=== PATIENT | male | born 1955 | race Caucasian/White ===

== ENCOUNTER 2019-04-25 06:04 | Day surgery (SDC) | payer MEDICARE, OTHER ==
[2019-04-25] MEDS: TROPICAMIDE 1% 15 ML OPH OPER (07:06)
[2019-04-25] MEDS: DICLOFENAC 0.1% 2.5 ML OPH OPER (07:06)
[2019-04-25] MEDS: CYCLOPENTOLATE/PHENYLEPH 2 ML OPH OPER (07:06)
[2019-04-25] MEDS: MOXIFLOXACIN 0.5% 3 ML OPH OPER (07:06)
[2019-04-25] MEDS: SOD CHLORIDE 0.9% 1,000 ML IV (07:07)
[2019-04-25] MEDS ORDERED: FENTAnyl 50 MCG/ML VIAL IV (08:30)
[2019-04-25] MEDS ORDERED: PROPOFOL 200 MG INJ (09:00)
[2019-04-25] MEDS ORDERED: LIDOCAINE 2% (SDV) 5 ML INJ (09:00)
[2019-04-25] MEDS ORDERED: NA HYALURONATE/CHONDROITIN 0.5 ML SYG (09:17)
[2019-04-25] MEDS ORDERED: CARBACHOL 0.01% 1.5 ML OPH INJ (09:17)
[2019-04-25] MEDS ORDERED: DEXAMETHASONE 4 MG/ML 1 ML INJ (09:17)
[2019-04-25] MEDS ORDERED: LIDOCAINE 4% (MPF) 5 ML INJ (09:17)
[2019-04-25] MEDS ORDERED: CEFAZOLIN 1 GM INJ (09:17)
[2019-04-25] MEDS: FENTAnyl 50 MCG/ML VIAL IV (09:20)
== END 2019-04-25 10:16 | disposition home or self-care (01) ==
LOC: SDS 06:04
DX: H25.042 Posterior subcapsular polar age-related cataract, left eye (principal); I10 Essential (primary) hypertension
CPT/HCPCS: 66984